=== PATIENT | female | born 1990 | race Two or more races ===

== ENCOUNTER 2020-07-15 10:03 | Emergency (ER) | payer OTHER ==
[2020-07-15 10:17] VITALS: TEMP 98; BMI 34.9
[2020-07-15] MEDS ORDERED: ACETAMINOPHEN 1000 MG/100 ML VIAL (NON FORMULARY) IVPB ONE (12:37)
[2020-07-15] MEDS ORDERED: ACETAMINOPHEN INJECTION 100 ML IVPB ONE (13:11)
[2020-07-15 13:42] LABS: BASO % 0.9 % (0-2.0); EOS % 2.3 % (0-4.5); HEMATOCRIT 33.7 % (32.4-45.2); HEMOGLOBIN 11.2 GM/dL (10.7-15.3); LYMPH % 24.6 % (8-40); MCH 29.2 pg (25.7-33.7); MCHC 33.2 g/dl (32.0-36.0); MEAN PLT VOLUME 9.5 fl (7.5-11.1); MONO % 5.7 % (3.8-10.2); NEUT % 66.5 % (42.8-82.8); PLATELET COUNT 328 K/MM3 (134-434); RBC 3.83 M/mm3 (3.60-5.2); WHITE BLOOD COUNT 8.3 K/mm3 (4.0-10.0)
[2020-07-15 13:51] LABS: INR 0.96 (0.83-1.09); PROTHROMBIN TIME (PATIENT) 11.6 SEC (9.7-13.0)
[2020-07-15 13:53] LABS: ACTIVATED PTT 29.5 SECONDS (25.2-36.5)
[2020-07-15 14:13] LABS: CHLORIDE 105 mmol/L (98-107); POTASSIUM 4.2 mmol/L (3.5-5.1); SODIUM 137 mmol/L (136-145)
[2020-07-15 14:17] LABS: CALCIUM 8.8 mg/dL (8.5-10.1)
[2020-07-15 14:18] LABS: ALBUMIN 3.5 g/dl (3.4-5.0); ANION GAP 4 MMOL/L (8-16); BLOOD UREA NITROGEN 6.6 mg/dL (7-18); CO2 28 mmol/L (21-32); GLUCOSE,RANDOM 86 mg/dL (74-106); MAGNESIUM 2.4 mg/dL (1.8-2.4)
[2020-07-15 14:21] LABS: CREATININE 0.7 mg/dL (0.55-1.3); SGOT/AST 13 U/L (15-37); SGPT/ALT 15 U/L (13-61)
[2020-07-15 14:22] LABS: BILIRUBIN,TOTAL 0.7 mg/dL (0.2-1); TOT PROT 7.6 g/dl (6.4-8.2)
[2020-07-15 14:24] LABS: ALK PHOS 96 U/L (45-117)
[2020-07-15] MEDS ORDERED: NAPROXEN 500 MG TABLET PO ONE (14:29)
[2020-07-15] MEDS ORDERED: NAPROXEN 500 MG TABLET ONE (14:36)
[2020-07-15 18:16] VITALS: BP 122/74; PULSE 70
== END 2020-07-15 18:16 | disposition home or self-care (01) ==
LOC: JER 10:03
PROC: 3E0333Z Introduction of Anti-inflammatory into Peripheral Vein, Percutaneous Approach (ICD-10-PCS; principal; 2020-07-15)
DX: R07.9 Chest pain, unspecified (principal)
CPT/HCPCS: 36415; 71046-TC-FY; 71275-TC; 80053; 82550; 83735; 84484; 84703; 85025; 85379; 85610; 85730; 93005; 93010; 99285-25; J0131; Q9967

== ENCOUNTER 2024-04-20 13:50 | Emergency (ER) | payer BC, OTHER ==
[2024-04-20 13:54] VITALS: BP 111/69; PULSE 72; RESP 18; TEMP 97.2; BMI 27.9
== END 2024-04-20 15:41 | disposition home or self-care (01) ==
LOC: JERFT 13:50
PROC: 0HQ1XZZ Repair Face Skin, External Approach (ICD-10-PCS; principal; 2024-04-20)
DX: S01.112A Laceration without foreign body of left eyelid and periocular area, initial encounter (principal); W22.8XXA Striking against or struck by other objects, initial encounter
CPT/HCPCS: 99282-25